=== PATIENT | female | born 2000 | race African-American/Black ===

== ENCOUNTER 2020-06-27 11:07 | Inpatient (IN) ==
[2020-06-27 12:16] LABS: Urine Appearance Cloudy; Urine Bilirubin Negative (Negative); Urine Blood Negative (Negative); Urine Color Straw; Urine Glucose Negative (Negative); Urine Ketones Negative (Negative); Urine Nitrite Negative (Negative); Urine Protein Negative (Negative); Urine Specific Gravity 1.003 (1.010-1.030); Urine Urobilinogen Negative (Negative)
[2020-06-27 12:35] LABS: ABS Eosinophils 0.2 10^3/ul (0-0.6); ABS Lymphocytes 1.9 10^3/ul (1.0-4.8); ABS Monocytes 0.5 10^3/ul (0-0.8); ABS Neutrophils 5.8 10^3/ul (1.5-7.7); Eosinophil % 2.3 %; Hematocrit 39 % (35-47); Hemoglobin 12.5 g/dL (12.0-16.0); Lymphocyte % 22.3 %; Mean Corpuscular HGB Conc 32 g/dL (31-36); Mean Corpuscular Hemoglobin 28 pg (27-31); Mean Corpuscular Volume 88 fL (80-97); Mean Platelet Volume 10.4 fL (7.4-10.4); Platelet Count 248 10^3/uL (150-450); Red Blood Count 4.42 10^6 /uL (3.70-4.87); Red Cell Distribution Width 13 % (10-15); White Blood Count 8.4 10^3/uL (3.5-10.8)
[2020-06-27 12:35] LABS: Urine Benzodiazepine Screen None Detected (None Detect); Urine Cannabinoids Screen Presumptive Positive (None Detect); Urine Opiates Screen None Detected (None Detect)
[2020-06-27 13:01] LABS: ALT 9 U/L (7-52); AST 13 U/L (13-39); Albumin 4.6 g/dL (3.2-5.2); Albumin/Globulin Ratio 1.5 (1-3); Alkaline Phosphatase 39 U/L (34-104); Anion Gap 6 mmol/L (2-11); Blood Urea Nitrogen 10 mg/dL (6-24); CO2 Carbon Dioxide 26 mmol/L (22-32); Calcium 9.6 mg/dL (8.6-10.3); Chloride 104 mmol/L (101-111); EGFR African American 116.8 (>60); EGFR Non-African American 96.6 (>60); Globulin 3.1 g/dL (2-4); Glucose 89 mg/dL (70-100); HCG Pregnancy < 0.60 mIU/mL; Potassium 3.9 mmol/L (3.5-5.0); Sodium 136 mmol/L (135-145); Total Protein 7.7 g/dL (6.4-8.9)
[2020-06-27 13:03] LABS: Alcohol, S < 10 mg/dL (<10); Salicylate < 2.50 mg/dL (<30)
[2020-06-27 13:08] LABS: Acetaminophen < 15 mcg/mL
[2020-06-27 13:10] LABS: TSH Ultra Thyroid Stim Horm 0.76 mcIU/mL (0.34-5.60)
[2020-06-27] MEDS ORDERED: Al Hydrox/Mg Hydrox/Simet LIQ 30 ML UDC PO PRN (22:05)
[2020-06-28] MEDS: Vitamin THERAPEUTIC TAB PO SCH (09:24)
[2020-06-29] MEDS: Vitamin THERAPEUTIC TAB PO SCH (09:24)
[2020-06-30 08:35] LABS: HDL Cholesterol 46.6 mg/dL
[2020-06-30] MEDS: Vitamin THERAPEUTIC TAB PO SCH (09:52)
[2020-07-01] MEDS ORDERED: Ondansetron ODT 4 mg TAB 4 MG TAB SL PRN (08:21)
[2020-07-01] MEDS: Vitamin THERAPEUTIC TAB PO SCH (10:20)
[2020-07-01 10:57] VITALS: BP 112/65
== END 2020-07-01 16:55 | disposition home or self-care (01) | DRG 750 ==
LOC: ED 11:07 → BSU 21:10
PROVIDERS: ADMIT Psychiatry & Neurology Psychiatry; ATTEND Psychiatry & Neurology Psychiatry